=== PATIENT | female | born 1990 ===

== ENCOUNTER 2017-04-07 04:30 | Inpatient (IN) | payer MEDICAID ==
[2017-04-07 04:45] VITALS: O2SAT 100; BMI 20.2
--- NOTE | 2017-04-07 04:45 | ED PDOC ---
Arrival/HPI - General Time Seen by Provider: 04/07/17 04:32 Historian: Patient - History of Present Illness Narrative History of Present Illness (Text): 04/07/17 04:41 Belkis Camarillo is a 26 year old female who presents to the emergency department as a psychiatric transfer for substance abuse and suicidal ideation. Patient has no other complaints at this time. Time/Duration: 4-6 hours Symptom Course: Unchanged Activities at Onset: Light Modifying Factors (Text): none Past Medical History - Provider Review Nursing Documentation Reviewed: Yes Family/Social History - Physician Review Nursing Documentation Reviewed: Yes Family/Social History: No Known Family HX Allergies/Home Meds Allergies/Adverse Reactions: Allergies haloperidol [From Haldol] Allergy (Verified 04/07/17 06:29) RASH risperidone [From Risperdal] Allergy (Verified 04/07/17 06:29) RASH Review of Systems - Physician Review All systems were reviewed & negative as marked: Yes - Review of Systems Constitutional: absent: Fevers, Night Sweats Eyes: absent: Vision Changes ENT: absent: Hearing Changes Respiratory: absent: SOB, Cough Cardiovascular: absent: Chest Pain Gastrointestinal: absent: Abdominal Pain Genitourinary Female: absent: Dysuria, Frequency Musculoskeletal: absent: Arthralgias Skin: absent: Rash, Pruritis Neurological: absent: Headache, Dizziness Endocrine: absent: Diaphoresis Hemo/Lymphatic: absent: Adenopathy Psychiatric: Suicidal Ideation, Other (Substance Abuse) Physical Exam Vital Signs Reviewed: Yes Vital Signs Temp Pulse Resp BP Pulse Ox 04/07/17 04:39 98 F 84 15 128/80 100 Temperature: Afebrile Blood Pressure: Normal Pulse: Regular Respiratory Rate: Normal Appearance: Positive for: Well-Appearing, Non-Toxic, Comfortable Pain Distress: None Mental Status: Positive for: Alert and Oriented X 3 - Systems Exam Head: Present: Atraumatic, Normocephalic Pupils: Present: PERRL Extroacular Muscles: Present: EOMI Conjunctiva: Present: Normal Mouth: Present: Moist Mucous Membranes Neck: Present: Normal Range of Motion Respiratory/Chest: Present: Clear to Auscultation, Good Air Exchange. No: Respiratory Distress, Accessory Muscle Use Cardiovascular: Present: Regular Rate and Rhythm, Normal S1, S2. No: Murmurs Abdomen: Present: Normal Bowel Sounds. No: Tenderness, Distention, Peritoneal Signs Back: Present: Normal Inspection Upper Extremity: Present: Normal Inspection. No: Cyanosis, Edema Lower Extremity: Present: Normal Inspection. No: Edema Neurological: Present: GCS=15, CN II-XII Intact, Speech Normal Skin: Present: Warm, Dry, Normal Color. No: Rashes Psychiatric: Present: Alert, Oriented x 3, Normal Insight, Normal Concentration Medical Decision Making ED Course and Treatment: 04/07/17 04:44 Impression: 26 year old female presents as a psychiatric transfer for substance abuse and suicidal ideation. Plan: -- Admission Progress Notes: - Medication Orders Current Medication Orders: Acetaminophen (Tylenol 325mg Tab) 650 mg PO Q4 PRN PRN Reason: Pain, Mild (1-3) Al Hydrox/Mg Hydrox/Simethicone (Maalox Plus 30 Ml) 30 ml PO DAILY PRN PRN Reason: Upset Stomach Ascorbic Acid (Vitamin C 500 Mg Tab) 500 mg PO DAILY [facility] Last Admin: 04/09/17 08:49 Dose: 500 mg Benzocaine/Menthol (Cepacol Sore Throat) 1 jasiel MT Q2H PRN PRN Reason: Sore Throat Last Admin: 04/09/17 17:25 Dose: 1 jasiel Divalproex Sodium (Depakote Dr(*Bid*)) 500 mg PO BID [facility] Last Admin: 04/09/17 17:25 Dose: 500 mg Behavioural Document 04/09/17 17:25 RGO (Rec: 04/09/17 17:25 RGO [id number]) Maintenance Maintenance Dose Yes Fluoxetine HCl (Prozac) 20 mg PO DAILY [facility] Last Admin: 04/09/17 08:48 Dose: 20 mg Guaifenesin (Robitussin) 100 mg PO Q4H PRN PRN Reason: Cough Hydroxyzine Pamoate (Vistaril) 50 mg PO TID [facility] PRN Reason: Protocol Last Admin: 04/09/17 17:26 Dose: 50 mg Behavioural Document 04/09/17 17:26 RGO (Rec: 04/09/17 17:26 RGO [id number]) Maintenance Maintenance Dose Yes Magnesium Hydroxide (Milk Of Magnesia) 30 ml PO DAILY PRN PRN Reason: Constipation Multivitamins (Thera Tab) 1 tab PO 0800 [facility] Last Admin: 04/09/17 08:47 Dose: 1 tab Nicotine (Nicoderm Cq) 1 patch TD DAILY [facility] Last Admin: 04/09/17 08:47 Dose: 1 patch MAR Transdermal Patch Site Document 04/09/17 08:47 RGO (Rec: 04/09/17 08:47 RGO [id number]) Transdermal Patch Site Transdermal Patch Site Left Outer Upper Arm Quetiapine Fumarate (Seroquel) 100 mg PO AMHS MATT PRN Reason: Protocol Last Admin: 04/09/17 14:18 Dose: Trazodone HCl (Desyrel) 50 mg PO HS PRN PRN Reason: Insomnia Last Admin: 04/08/17 22:32 Dose: 50 mg Ziprasidone (Geodon Inj) 20 mg IM Q6 PRN; Protocol PRN Reason: agiation Discontinued Medications Clonazepam (Klonopin) 1 mg PO STAT STA PRN Reason: Protocol Stop: 04/07/17 11:23 Last Admin: 04/07/17 11:27 Dose: 1 mg Behavioural Document 04/07/17 11:27 RGO (Rec: 04/07/17 11:27 RGO [id number]) Maintenance Maintenance Dose No Nonmedicinal Nonmedicinal Interventions Therapeutic Communication Behavior Behavior for Medication: Anxiety Fluoxetine HCl (Prozac) 10 mg PO DAILY MATT Last Admin: 04/08/17 10:30 Dose: 10 mg Quetiapine Fumarate (Seroquel) 50 mg PO AMHS MATT PRN Reason: Protocol Last Admin: 04/08/17 10:30 Dose: 50 mg Behavioural Document 04/08/17 10:30 RGO (Rec: 04/08/17 10:31 RGO [id number]) Maintenance Maintenance Dose Yes Quetiapine Fumarate (Seroquel) 50 mg PO STAT STA PRN Reason: Protocol Stop: 04/07/17 17:34 Last Admin: 04/07/17 17:53 Dose: 50 mg Behavioural Document 04/07/17 17:53 RGO (Rec: 04/07/17 17:54 RGO [id number]) Maintenance Maintenance Dose No Nonmedicinal Nonmedicinal Interventions Therapeutic Communication Behavior Behavior for Medication: Anxiety - Scribe Statement The provider has reviewed the documentation as recorded by the Scribe Laura Gonzalez Provider Scribe Attestation: All medical record entries made by the Scribe were at my direction and personally dictated by me. I have reviewed the chart and agree that the record accurately reflects my personal performance of the history, physical exam, medical decision making, and the department course for this patient. I have also personally directed, reviewed, and agree with the discharge instructions and disposition. Disposition/Present on Arrival - Present on Arrival Any Indicators Present on Arrival: No - Disposition Have Diagnosis and Disposition been Completed?: Yes Diagnosis: Suicidal ideation Disposition: HOSPITALIZED Disposition Time: 05:00 Patient Problems: Current Active Problems Problem Status Onset MDD (major depressive disorder) Acute Polysubstance abuse Acute Condition: GOOD
[2017-04-07] MEDS ORDERED: Magnesium Hydroxide Susp 30 ml UD PO PRN (06:30)
[2017-04-07] MEDS ORDERED: Alum-Mag Hydrox-Simethicone Susp (30 mL) PO PRN (06:30)
--- NOTE | 2017-04-07 07:04 | PCM.BM ---
<Chris Posadas - Last Filed: 04/07/17 07:01> Treatment Plan Problems - Problems identified on initial assessmt Suicidal Ideation Date Initiated: 04/07/17 Time Initiated: 07:01 Assessment reference: NA Status: Active Anxiety Date Initiated: 04/07/17 Time Initiated: 07:01 Assessment reference: NA Status: Active Altered Through Process Date Initiated: 04/07/17 Time Initiated: 07:02 Assessment reference: NA Status: Active Hopelessness/Helplessness Date Initiated: 04/07/17 Time Initiated: 07:02 Assessment reference: NA Status: Active Ineffective Coping Date Initiated: 04/07/17 Time Initiated: 07:02 Assessment reference: NA Status: Active Treatment assets and liabiliti Patient Assests: cooperative, self-reliant, ADL independent, physically healthy , negotiates basic needs Patient Liabilities: live alone, financial problems, poor support system, relationship conflicts, substance abuse - Milieu Protocol Maintain good personal hygiene: daily Encourage regular showers, daily Remind patient to perform daily oral care, daily Assist patient to perform ADL's Maintain personal safety: every shift Educate patient to report safety concerns to staff, every shift Monitor environment for contraband/sharps Medication safety: Monitor for expected outcome, potential side effects: every shift, Assess barriers to learning: every shift, Assess readiness for medication education: every shift Discharge/Continuing Care - Education Needs Education Needs: Patient Medication, Patient Diagnosis/Disease Process, Patient Coping Skills, Patient Community resources, Patient Health Practices/Safety, Patient Aftercare Safety Plan - Discharge Discharge Criteria: Free of Suicidal thoughts, Free of Homicidal thoughts, Normal sleep pattern, Ability to care for self, Reduction of target symptoms <Annetta Ventura - Last Filed: 04/07/17 11:44> - Diagnosis (1) MDD (major depressive disorder) Status: Acute Interventions: 04/07/17 11:45 Psychoeducation Psychopharmacology/adjustment of medications as needed/ monitoring possible side effects Evaluate pt on daily basis Compliance with medications and follow up appointments Suicide and homicide risk assessment and prevention Relapse prevention Reduction of symptoms Improve functional status Family involvement As outpatient: cognitive behavioral therapy (2) Polysubstance abuse Status: Acute Interventions: 04/07/17 11:45 Monitoring withdrawal symptoms Medical detoxification Pharmacotherapy for alcohol/benzos/opioid dependence Maintaining sobriety Relapse prevention Possible rehabilitation Motivational interviewing 12-step programs: AA meetings <Ita Garzon Y - Last Filed: 04/08/17 09:00> Family Contact Family involvement: Famliy/SO not involved
[2017-04-07 08:23] LABS: BASO # 0.02 K/mm3 (0.0-2.0); BASO % 0.3 % (0.0-3.0); EOS % 0.4 % (1.5-5.0); GRAN # 5.63 (1.4-6.5); HEMATOCRIT 37.6 % (36.0-48.0); LYMPH # 1.2 (1.2-3.4); LYMPH % 15.7 % (22.0-35.0); MEAN CELL VOLUME 83.9 fl (80.0-105.0); MEAN CORPUSCULAR HEMOGLOBIN 27.7 pg (25.0-35.0); MEAN PLATELET VOLUME 10.5 fl (7.0-11.0); MONO # 0.5 (0.1-0.6); MONO % 6.6 % (1.0-6.0); RED CELL DISTRIBUTION WIDTH 14.1 % (11.5-14.5); WHITE BLOOD COUNT 7.3 10^3/ul (4.5-11.0)
[2017-04-07 08:27] LABS: ALB/GLOB RATIO 1.3 (1.1-1.8); ALKALINE PHOSPHATASE 55 U/L (38-126); ALT/SGPT 25 U/L (7-56); AST/SGOT 20 U/L (14-36); BILIRUBIN,TOTAL 0.4 mg/dL (0.2-1.3); BLOOD UREA NITROGEN 14 mg/dL (7-21); CALCIUM 9.2 mg/dL (8.4-10.5); CARBON DIOXIDE 26 mmol/L (21-33); CHLORIDE 105 mmol/L (98-107); CHOLESTEROL 159 mg/dL (130-200); GFR AFRICAN-AMERICAN > 60; GLUCOSE,FASTING 97 mg/dL (65-110); GLUCOSE,RANDOM 97 mg/dL (70-110); POTASSIUM 4.3 mmol/L (3.6-5.0); SODIUM 140 mmol/L (132-148)
[2017-04-07 08:49] LABS: FREE T4 1.15 ng/dL (0.78-2.19)
[2017-04-07 09:03] LABS: THYROID STIMULATING HORMONE 0.09 mIU/mL (0.46-4.68)
--- NOTE | 2017-04-07 11:55 | CP.PCM.CON ---
<Alhaji Scott - Last Filed: 04/07/17 12:50> History of Present Illness - History of Present Illness History of Present Illness: 26 year old female with past medical history of Anxiety, Bipolar Disorder, Depression presents to the ED as a transfer from [place] for substance abuse and suicidal idealations. Patient states she was sad because her boyfriend is in penitentiary and as a result she has been suicidal. Currently she states she wants to hurt herself but not others. Patient also states she feels anxious because she is far from home. Patient denies any chest pain, shortness of breath, abdominal pain, nausea, vomiting, fever, chills, or any other complaints. Past Medical History: Anxiety, Bipolar Disorder, Depression Past Surgical history: denies Family History: adopted Allergies: haloperidol, risperidone make her dystonic Social: smokes a pack of cigarettes a day, denied alcohol use, crack use occasionally Medications: does not follow her psychiatric medication regimen, unsure of medications Review of Systems - Constitutional Constitutional: absent: Chills, Fever - EENT Eyes: absent: Blurred Vision Ears: absent: Decreased Hearing, Tinnitus Nose/Mouth/Throat: absent: Nasal Discharge, Sore Throat - Cardiovascular Cardiovascular: absent: Chest Pain, Dyspnea - Respiratory Respiratory: absent: Cough - Gastrointestinal Gastrointestinal: absent: Abdominal Pain - Genitourinary Genitourinary: absent: Change in Urinary Stream, Difficulty Urinating - Musculoskeletal Musculoskeletal: absent: Back Pain - Integumentary Integumentary: absent: Rash, Sores, Wounds - Neurological Neurological: absent: Dizziness, Numbness, Paresthesias, Tingling, Vertigo, Weakness - Psychiatric Psychiatric: Anxiety, Suicidal Ideation. absent: Confusion, Hallucinations, Visual Hallucinations Past Patient History - Past Social History Smoking Status: Never Smoked - CARDIAC Hx Cardiac Disorders: No - PULMONARY Hx Respiratory Disorders: Yes (Pneumothorax) - NEUROLOGICAL Hx Neurological Disorder: No - HEENT Hx HEENT Problems: No - RENAL Hx Chronic Kidney Disease: No - ENDOCRINE/METABOLIC Hx Endocrine Disorders: No - HEMATOLOGICAL/ONCOLOGICAL Hx Blood Disorders: No - INTEGUMENTARY Hx Dermatological Problems: No - MUSCULOSKELETAL/RHEUMATOLOGICAL Hx Musculoskeletal Disorders: No - GASTROINTESTINAL Hx Gastrointestinal Disorders: No - GENITOURINARY/GYNECOLOGICAL Hx Genitourinary Disorders: No - PSYCHIATRIC Hx Schizophrenia: Yes Hx Substance Use: Yes - SURGICAL HISTORY Hx Surgeries: No - ANESTHESIA Hx Anesthesia: No Meds Allergies/Adverse Reactions: Allergies Allergy/AdvReac Type Severity Reaction Status Date / Time haloperidol [From Haldol] Allergy RASH Verified 04/07/17 06:29 risperidone [From Risperdal] Allergy RASH Verified 04/07/17 06:29 - Medications Medications: Current Medications Acetaminophen (Tylenol 325mg Tab) 650 mg PO Q4 PRN PRN Reason: Pain, Mild (1-3) Al Hydrox/Mg Hydrox/Simethicone (Maalox Plus 30 Ml) 30 ml PO DAILY PRN PRN Reason: Upset Stomach Magnesium Hydroxide (Milk Of Magnesia) 30 ml PO DAILY PRN PRN Reason: Constipation Nicotine (Nicoderm Cq) 1 patch TD DAILY MATT Physical Exam - Constitutional Appears: Unkempt - Head Exam Head Exam: ATRAUMATIC, NORMAL INSPECTION, NORMOCEPHALIC - Eye Exam Eye Exam: EOMI, Normal appearance Pupil Exam: NORMAL ACCOMODATION, PERRL - ENT Exam ENT Exam: Mucous Membranes Moist, Normal Exam - Neck Exam Neck exam: Negative for: Lymphadenopathy - Respiratory Exam Respiratory Exam: Clear to Auscultation Bilateral, NORMAL BREATHING PATTERN - Cardiovascular Exam Cardiovascular Exam: REGULAR RHYTHM, +S1, +S2 - GI/Abdominal Exam GI & Abdominal Exam: Normal Bowel Sounds - Neurological Exam Neurological exam: Alert, Oriented x3 - Psychiatric Exam Psychiatric exam: Suicidal Ideation Additional comments: Patient states wants to hurt herself - Skin Skin Exam: Dry Results - Vital Signs Recent Vital Signs: Last Vital Signs Temp 98 F 04/07/17 04:39 Pulse 84 04/07/17 04:39 Resp 16 04/07/17 06:03 BP 128/80 04/07/17 04:39 Pulse Ox 100 04/07/17 04:39 - Labs Result Diagrams: 04/07/17 08:00 04/07/17 08:00 Labs: Laboratory Results - last 24 hr 04/07/17 04/07/17 04/07/17 08:00 08:00 08:00 WBC 7.3 RBC 4.48 Hgb 12.4 Hct 37.6 MCV 83.9 MCH 27.7 MCHC 33.0 RDW 14.1 Plt Count 321 MPV 10.5 Gran % 77.0 H Lymph % (Auto) 15.7 L Parker % (Auto) 6.6 H Eos % (Auto) 0.4 L Baso % (Auto) 0.3 Gran # 5.63 Lymph # 1.2 Parker # 0.5 Eos # 0.0 Baso # 0.02 Sodium 140 Potassium 4.3 Chloride 105 Carbon Dioxide 26 Anion Gap 13 BUN 14 Creatinine 0.7 Est GFR ( Amer) > 60 Est GFR (Non-Af Amer) > 60 Random Glucose 97 Fasting Glucose 97 Calcium 9.2 Total Bilirubin 0.4 AST 20 ALT 25 Alkaline Phosphatase 55 Total Protein 7.0 Albumin 3.9 Globulin 3.1 Albumin/Globulin Ratio 1.3 Triglycerides 102 Cholesterol 159 LDL Cholesterol Direct 99 HDL Cholesterol 40 Free T4 1.15 TSH 3rd Generation 0.09 L Assessment & Plan - Assessment and Plan (Free Text) Assessment: 26 year old female with past medical history of Anxiety, Bipolar Disorder, Depression presents to the ED as a transfer from [place] for substance abuse and suicidal idealations. Patient is being consulted by medicine for medical clearance. Plan: 1. Psychiatric History-chronic -Depression -Bipolar Disorder -Anxiety -defer to psychiatry 2. Tobacco use -patient reports smoking more than a pack a day -risks of tobacco use discussed, and smoking cessation counseling offered -nicotine patch given 3. Illicit Drug Use -urine drug screen from [place] was positive for marijuana, opiates and cocaine -no signs of overdose or withdrawal currently -vitals and labs reviewed -patient counselled on drug use risk and help available to quit Patient is medically clear for admission to psychiatry. <Shawna Jeffers - Last Filed: 04/07/17 15:40> Meds - Medications Medications: Current Medications Acetaminophen (Tylenol 325mg Tab) 650 mg PO Q4 PRN PRN Reason: Pain, Mild (1-3) Al Hydrox/Mg Hydrox/Simethicone (Maalox Plus 30 Ml) 30 ml PO DAILY PRN PRN Reason: Upset Stomach Divalproex Sodium (Depakote Dr(*Bid*)) 500 mg PO BID MATT Fluoxetine HCl (Prozac) 10 mg PO DAILY MATT Magnesium Hydroxide (Milk Of Magnesia) 30 ml PO DAILY PRN PRN Reason: Constipation Nicotine (Nicoderm Cq) 1 patch TD DAILY MATT Trazodone HCl (Desyrel) 50 mg PO HS PRN PRN Reason: Insomnia Ziprasidone (Geodon Inj) 20 mg IM Q6 PRN; Protocol PRN Reason: agiation Results - Vital Signs Recent Vital Signs: Last Vital Signs Temp 98 F 04/07/17 04:39 Pulse 84 04/07/17 04:39 Resp 16 04/07/17 06:03 BP 128/80 04/07/17 04:39 Pulse Ox 100 04/07/17 04:39 - Labs Result Diagrams: 04/07/17 08:00 04/07/17 08:00 Labs: Laboratory Results - last 24 hr 04/07/17 04/07/17 04/07/17 08:00 08:00 08:00 WBC 7.3 RBC 4.48 Hgb 12.4 Hct 37.6 MCV 83.9 MCH 27.7 MCHC 33.0 RDW 14.1 Plt Count 321 MPV 10.5 Gran % 77.0 H Lymph % (Auto) 15.7 L Parker % (Auto) 6.6 H Eos % (Auto) 0.4 L Baso % (Auto) 0.3 Gran # 5.63 Lymph # 1.2 Parker # 0.5 Eos # 0.0 Baso # 0.02 Sodium 140 Potassium 4.3 Chloride 105 Carbon Dioxide 26 Anion Gap 13 BUN 14 Creatinine 0.7 Est GFR ( Amer) > 60 Est GFR (Non-Af Amer) > 60 Random Glucose 97 Fasting Glucose 97 Calcium 9.2 Total Bilirubin 0.4 AST 20 ALT 25 Alkaline Phosphatase 55 Total Protein 7.0 Albumin 3.9 Globulin 3.1 Albumin/Globulin Ratio 1.3 Triglycerides 102 Cholesterol 159 LDL Cholesterol Direct 99 HDL Cholesterol 40 Free T4 1.15 TSH 3rd Generation 0.09 L Attending/Attestation - Attestation I have personally seen and examined this patient.: Yes I have fully participated in the care of the patient.: Yes I have reviewed all pertinent clinical information: Yes Notes (Text): 04/07/17 15:37 attending note; Patient seen and examined with resident in psychiatric floor. Patient is a 26 year old female with past medical history of Anxiety, Bipolar Disorder, Depression presents to the ED as a transfer from [place] for substance abuse and suicidal ideations.currently on Depakote, trazodone, Prozac. Active smoking; smoking cessation is strongly advised. Started on NicoDerm patch. cocaine and opiate abuse; complete cessation is strongly advised. Labs reviewed. Patient is medically stable. Please reconsult as needed. Thank you for the courtesy of this consultation. Patient may follow up with PMD upon discharge. 04/07/17 15:39
[2017-04-07] MEDS: Divalproex 500 mg DR(BID formulation) PO SCH (17:32)
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
[2017-04-08] MEDS: Divalproex 500 mg DR(BID formulation) PO SCH ×2 (10:29→17:40)
[2017-04-08] MEDS ORDERED: Benzocaine/Menthol (Cepacol) Lozenge MT PRN (11:09)
--- NOTE | 2017-04-08 16:14 | PCM.PYCHPN ---
Psychiatric Progress Note - Psychiatric Progress Note Patient seen today, length of contact: 30 minutes Patient Chief Complaint: "I was high on drugs". Medical Problems: patient was seen by medical team, please see notes for more detailed information. Diagnostic Results: 04/07/17 08:00 04/07/17 08:00 Lab Results 04/07/17 08:00: Free T4 1.15, TSH 3rd Generation 0.09 L 04/07/17 08:00: RPR Nonreactive 04/07/17 08:00: WBC 7.3, RBC 4.48, Hgb 12.4, Hct 37.6, MCV 83.9, MCH 27.7, MCHC 33.0, RDW 14.1, Plt Count 321, MPV 10.5, Gran % 77.0 H, Lymph % (Auto) 15.7 L, [place] % (Auto) 6.6 H, Eos % (Auto) 0.4 L, Baso % (Auto) 0.3, Gran # 5.63, Lymph # 1.2, [place] # 0.5, Eos # 0.0, Baso # 0.02 04/07/17 08:00: Sodium 140, Potassium 4.3, Chloride 105, Carbon Dioxide 26, Anion Gap 13, BUN 14, Creatinine 0.7, Est GFR ( Amer) > 60, Est GFR (Non- Af Amer) > 60, Random Glucose 97, Fasting Glucose 97, Calcium 9.2, Total Bilirubin 0.4, AST 20, ALT 25, Alkaline Phosphatase 55, Total Protein 7.0, Albumin 3.9, Globulin 3.1, Albumin/Globulin Ratio 1.3, Triglycerides 102, Cholesterol 159, LDL Cholesterol Direct 99, HDL Cholesterol 40 Vital Signs Temp Pulse Resp BP Pulse Ox 04/08/17 06:43 98.5 F 93 H 19 04/07/17 06:03 16 04/07/17 04:39 98 F 84 15 128/80 100 DSM 5 Symptoms Update: shortly patient is 26 year old -[place] female, self reported history of mental illness, patient was transferred from [facility] for evaluation of possible suicidal ideation, prior to come to the hospital patient was stopped by police because "talking to someone in the middle of the road that wasn't there", most likely patient was psychotic, at the same time "feeling really low and does not feel like going on", patient has multiple psychiatric admissions more than 4, most recent was at [place] for 9 days because of suicidal ideation, patient has history of cocaine abuse, opioid abuse , pt also has h/o schizoaffective disorder. Based on the history, severeness of presentation, patient was not able to maintain as outpatient, patient was noncompliant with the medications and follow-up appointments, patient needs further evaluation and stabilization into the psychiatric inpatient unit. patient was seen at the treatment team room, patient presented with improved personal hygiene, patient reports that that she does not like to stay in this particular hospital because she is not from friends, patient said that she waled out from the [facility] two weeks ago, where she spent 10 days, she relapsed on drugs on the next day, now pt "regret it". pt said that prior to come to the hospital she was confused, was not making much sense "I want to be okay, I am becoming very old". So far patient tolerates medications well, no side effects observed or reported. Patient complain of the sore throat, was observed coughing, chest x-ray was negative and other hospital, patient was offered to lozenges, vitamin C and multivitamins. MSE: patient seems to be poor and unreliable historian, pt took a shower, intermittent eye contact, speech was underproductive, mood described as hopeless , affect was flat, thought processes concrete, thought content patient obviously disorganized, but denied visual or distorted tactile hallucinations, as per report patient verbalize thoughts of killing herself, but denied during the interview, insight and judgment are limited impulses are unpredictable. Impression: as per history of schizoaffective disorder Polysubstance abuse and dependence Rule out malingering Treatment plan: Milieu/structure/supportive therapy Medical consult appreciated, see medical team note for more detailed info consultation for discharge plan and social issues Med management Prozac will be resumed 20 mg daily for depression and anxiety and Seroquel 100 mg twice a day for mood stabilization Depakote 500 mg twice a day for mood stabilization Trazodone as needed for insomnia Vistaril 50 mg 3 times a day as needed for anxiety Family involvement Follow up on labs Will monitor closely evaluation for d/c planning Pt was educated about risk/benefits and alternatives of medications, coping strategies (safety plan, suicide prevention), relapse prevention, importance of follow up with psychiatrist and therapist, stay away from drugs/alcohol/smoking Medication Change: Yes Medical Record Reviewed: Yes Consults ordered or reviewed: medical consultation appreciated. Goal/Treatment Plan - Goal/Treatment Plan Need for Continued Stay: Remain at risks for inpatient hospitalization, Severe depression anxiety, Discharge may exacerbated symptoms, Severe functional impairment Estimated Date of D/C: 04/11/17 (we'll monitor closely)
[2017-04-09] MEDS: Multivitamin Therapeutic Tab PO SCH (08:47)
[2017-04-09] MEDS: Divalproex 500 mg DR(BID formulation) PO SCH ×2 (08:47→17:25)
[2017-04-09] MEDS ORDERED: guaiFENesin 100 mg/5 ml Syrup UD PO PRN (16:19)
[2017-04-10 06:46] VITALS: BP 107/66; PULSE 84; RESP 20; TEMP 97.9
--- NOTE | 2017-04-10 09:10 | CP.PCM.PN ---
<Alhaji Scott - Last Filed: 04/10/17 15:21> Subjective - Date & Time of Evaluation Date of Evaluation: 04/10/17 Time of Evaluation: 07:00 - Subjective Subjective: Patient was seen and examined bedside. Patient was sleeping and awoken. She denied any cough, sore throat, shorrtness of breath, nausea, vomiting or any other complaints. Objective - Vital Signs/Intake and Output Vital Signs (last 24 hours): Temp Pulse Resp BP Pulse Ox 97.9 F 84 20 107/66 100 04/10/17 06:45 04/10/17 06:45 04/10/17 06:45 04/10/17 06:45 04/07/17 04:39 - Medications Medications: Current Medications Acetaminophen (Tylenol 325mg Tab) 650 mg PO Q4 PRN PRN Reason: Pain, Mild (1-3) Al Hydrox/Mg Hydrox/Simethicone (Maalox Plus 30 Ml) 30 ml PO DAILY PRN PRN Reason: Upset Stomach Ascorbic Acid (Vitamin C 500 Mg Tab) 500 mg PO DAILY [facility] Last Admin: 04/09/17 08:49 Dose: 500 mg Benzocaine/Menthol (Cepacol Sore Throat) 1 jasiel MT Q2H PRN PRN Reason: Sore Throat Last Admin: 04/09/17 17:25 Dose: 1 jasiel Divalproex Sodium (Depakote Dr(*Bid*)) 500 mg PO BID [facility] Last Admin: 04/09/17 17:25 Dose: 500 mg Fluoxetine HCl (Prozac) 20 mg PO DAILY [facility] Last Admin: 04/09/17 08:48 Dose: 20 mg Guaifenesin (Robitussin) 100 mg PO Q4H PRN PRN Reason: Cough Hydroxyzine Pamoate (Vistaril) 50 mg PO TID [facility] PRN Reason: Protocol Last Admin: 04/09/17 17:26 Dose: 50 mg Magnesium Hydroxide (Milk Of Magnesia) 30 ml PO DAILY PRN PRN Reason: Constipation Multivitamins (Thera Tab) 1 tab PO 0800 [facility] Last Admin: 04/09/17 08:47 Dose: 1 tab Nicotine (Nicoderm Cq) 1 patch TD DAILY [facility] Last Admin: 04/09/17 08:47 Dose: 1 patch Quetiapine Fumarate (Seroquel) 100 mg PO AMHS [facility] PRN Reason: Protocol Last Admin: 04/09/17 23:03 Dose: 100 mg Trazodone HCl (Desyrel) 50 mg PO HS PRN PRN Reason: Insomnia Last Admin: 04/09/17 23:03 Dose: 50 mg Ziprasidone (Geodon Inj) 20 mg IM Q6 PRN; Protocol PRN Reason: agiation - Labs Labs: 04/07/17 08:00 04/07/17 08:00 - Constitutional Appears: Non-toxic, No Acute Distress - Head Exam Head Exam: ATRAUMATIC, NORMAL INSPECTION, NORMOCEPHALIC - Eye Exam Eye Exam: EOMI, Normal appearance - ENT Exam ENT Exam: Normal Exam - Neck Exam Neck Exam: Normal Inspection - Respiratory Exam Respiratory Exam: Clear to Ausculation Bilateral, NORMAL BREATHING PATTERN - Cardiovascular Exam Cardiovascular Exam: REGULAR RHYTHM, +S1, +S2 - GI/Abdominal Exam GI & Abdominal Exam: Normal Bowel Sounds - Extremities Exam Extremities Exam: Normal Inspection - Back Exam Back Exam: NORMAL INSPECTION - Neurological Exam Neurological Exam: Alert, Awake, Oriented x3 - Psychiatric Exam Psychiatric exam: Flat Affect - Skin Skin Exam: Intact Assessment and Plan - Assessment and Plan (Free Text) Assessment: 26 year old female evaluated for possible cough/sore throat in the psychiatry unit Plan: Patient was examined physically and did not have any evidence of cough or sorethroat. nothing to be done from medicine . <Shawna Jeffers - Last Filed: 04/10/17 18:54> Objective - Vital Signs/Intake and Output Vital Signs (last 24 hours): Temp Pulse Resp BP Pulse Ox 97.9 F 84 20 107/66 100 04/10/17 06:45 04/10/17 06:45 04/10/17 06:45 04/10/17 06:45 04/07/17 04:39 - Labs Labs: 04/07/17 08:00 04/07/17 08:00 Attending/Attestation - Attestation I have personally seen and examined this patient.: Yes I have fully participated in the care of the patient.: Yes I have reviewed all pertinent clinical information, including history, physical exam and plan: Yes Notes (Text): 04/10/17 18:54 attending note; Patient seen and examined with resident in psychiatric floor. Patient is a 26 year old female with past medical history of Anxiety, Bipolar Disorder, Depression presents to the ED as a transfer from [place] for substance abuse and suicidal ideation.currently on Depakote, trazodone, Prozac. Active smoking; smoking cessation is strongly advised. Started on NicoDerm patch. cocaine and opiate abuse; complete cessation is strongly advised. complaint of cough and shortness of breath. On Cepacol lozenges. Started on Robitussin. Currently patient is afebrile, nontoxic. Denies any shortness of breath or cough. Continue conservative management. Patient is medically stable for discharge. Patient may follow up with PMD upon discharge.
[2017-04-10] MEDS: Multivitamin Therapeutic Tab PO SCH (09:35)
[2017-04-10] MEDS: Divalproex 500 mg DR(BID formulation) PO SCH (09:35)
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
== END 2017-04-10 12:45 | disposition home or self-care (01) | DRG 430 ==
LOC: ED 04:30 → ERH 04:41 → PSYC 05:17
PROVIDERS: ADMIT Psychiatry & Neurology Psychiatry; ATTEND Psychiatry & Neurology Psychiatry
DX: F25.9 Schizoaffective disorder, unspecified (principal); R45.851 Suicidal ideations; F11.20 Opioid dependence, uncomplicated; F14.90 Cocaine use, unspecified, uncomplicated; F31.9 Bipolar disorder, unspecified; F41.9 Anxiety disorder, unspecified; F17.210 Nicotine dependence, cigarettes, uncomplicated; Z91.14 Patient's other noncompliance with medication regimen; Z79.899 Other long term (current) drug therapy